=== PATIENT | male | born 1990 | race African-American/Black ===

== ENCOUNTER 2019-10-31 21:10 | Emergency (ER) | payer MEDICARE, MEDICAID ==
[~2019-10-31] VITALS: Ht 170.2 cm; Wt 73.0 kg
[2019-11-01] MEDS ORDERED: ACETAMINOPHEN 325MG TABLET PO ONE
[2019-11-01 00:32] VITALS: BP 132/70
== END 2019-11-01 00:32 | disposition home or self-care (01) ==
LOC: ER 21:10
DX: R68.89 Other general symptoms and signs (principal); I25.10 Atherosclerotic heart disease of native coronary artery without angina pectoris; Z98.890 Other specified postprocedural states
CPT/HCPCS: 99283

== ENCOUNTER 2020-05-02 08:57 | Emergency (ER) | payer MEDICARE, MEDICAID ==
[~2020-05-02] VITALS: Ht 144.8 cm; Wt 51.0 kg
[2020-05-02 10:10] LABS: EOSINOPHILS % 1.5 % (0.0-5.0); HEMATOCRIT. 40.8 % (42.0-52.0); HEMOGLOBIN. 13.3 g/dL (14.0-18.0); LYMPHOCYTES % 67.6 % (20.0-50.0); MEAN CORPUSCULAR HEMOGLOBIN 30.3 pg (28.0-32.0); MEAN PLATELET VOLUME 8.9 fl (7.4-10.4); MONOCYTES % 7.7 % (2.0-8.0); NEUTROPHILS % 22.2 % (40.0-76.0); PLATELET 178 x1000/uL (130-400); RED BLOOD CELL COUNT 4.38 mill/uL (4.7-6.1); RED CELL DISTRIBUTION WIDTH 15.7 % (11.6-14.6)
[2020-05-02 10:24] LABS: CHLORIDE 106 mEq/L (98-107)
[2020-05-02 15:03] VITALS: BP 121/52
== END 2020-05-02 15:06 | disposition home or self-care (01) ==
LOC: ER 09:09
DX: R07.9 Chest pain, unspecified (principal); I25.10 Atherosclerotic heart disease of native coronary artery without angina pectoris; R62.50 Unspecified lack of expected normal physiological development in childhood
CPT/HCPCS: 36415; 71045; 80053; 84484; 85025; 93005; 99285